=== PATIENT | female | born 1990 | race Caucasian/White ===

== ENCOUNTER → 2018-04-01 09:35 | Outpatient (CLI) | payer OTHER, SELFPAY ==
[2018-04-07 12:18] LABS: HPV APTIMA, High Risk Negative (Negative)
[2018-04-07 12:55] LABS: HPV Reflexed? NOT INDICATED
== END ==
PROVIDERS: Visit Provider Obstetrics & Gynecology
DX: Z12.4 Encounter for screening for malignant neoplasm of cervix (principal)
CPT/HCPCS: 87624; 88175; G0145

== ENCOUNTER → 2018-04-27 11:45 | Outpatient (CLI) | payer OTHER, SELFPAY ==
[2018-04-28 17:18] LABS: Chlamydia Trachomatis by PCR Negative (Negative); Neisserai gonorrhoeae by PCR Negative (Negative); Probe Check PASS; Sample Adequacy Control PASS; Specimen Processing Control PASS
== END ==
PROVIDERS: Visit Provider Obstetrics & Gynecology
DX: Z11.3 Encounter for screening for infections with a predominantly sexual mode of transmission (principal)
CPT/HCPCS: 87491; 87591

== ENCOUNTER → 2018-05-05 16:05 | Outpatient (CLI) | payer OTHER, SELFPAY ==
[2018-05-05 17:21] LABS: Absolute Lymphocyte Count 2.55 X10^3/ul (0.83-4.51); Absolute Neutrophil Count 5.9 X10^3/uL (2.0-7.7); Basophil# 0.01 X10^3/uL; Basophil% 0.1 % (0-1); Eosinophil# 0.25 X10^3/uL; Eosinophils% 2.6 % (0-5); Hematocrit 40.3 % (37-47); Hemoglobin 13.9 g/dl (12.0-15.0); Lymphocyte # 2.55 X10^3/ul (4.0); Lymphocyte % 26.5 % (19-41); Mean Corp Hgb Conc 34.5 g/gl (32-36); Mean Corpuscular Hgb 30.8 pg (27.0-32.0); Mean Corpuscular Volume 89.2 fL (81-99); Mean Platelet Vol. 11.3 fl (6.2-12.0); Monocyte# 0.87 X10^3/uL; Monocyte% 9.1 % (0-10); Neutrophil # 5.91 X10^3/uL (2.7-7.7); Neutrophil % 61.5 % (47-70); Platelet Count 300 K/mm3 (150-450); RBC Distribution Width CV 12.6 % (11.6-14.6); Red Blood Count 4.52 M/mm3 (4.2-5.4); White Blood Count 9.6 K/mm3 (4.4-11.0)
[2018-05-05 17:23] LABS: Color, Urine Yellow (Yellow); Glucose, Dipstick Normal (Normal); Ketone-Dipstick Negative (Negative); Leukocyte Esterase-Dipstick Negative /ul (Negative); Nitrite-Dipstick Negative (Negative); Occult Blood-Urine Negative /ul (Negative); POSITIVE COUNT NO; POSITIVE DIFFERENTIAL NO; POSITIVE MORPHOLOGY NO; Protein-Dipstick Negative (Negative); Specific Gravity, Urine 1.015 (1.002-1.030); Urine Bilirubin Dipstick Negative (Negative); Urine Clarity Sl. Cloudy (Clear); Urine Urobilinogen Normal (Normal)
[2018-05-05 17:31] LABS: Amphetamine Urine VISTA NEGATIVE (<1000 ng/mL); Barbiturate Urine VISTA NEGATIVE (< 200 ng/mL); Benzodiazepine Urine VISTA NEGATIVE (< 200 ng/mL); COTININE Drug Screen Negative (<200 ng/mL); Cocaine Urine VISTA NEGATIVE (< 300 ng/mL); Ecstacy Urine VISTA NEGATIVE (< 500 ng/mL); Methadone Urine VISTA NEGATIVE (< 300 ng/mL); PCP Urine VISTA NEGATIVE (< 25 ng/mL); THC Urine VISTA NEGATIVE (< 50 ng/mL); Vista UDS pH Range 6
[2018-05-05 18:20] LABS: HIV - WCH Non-Reactive (Nonreactive); Rubella IgG 331.8 IU/mL
[2018-05-07 01:30] LABS: Prenatal RPR NONREACTIVE (NONREACTIVE)
[2018-05-07 14:06] LABS: HEPATITIS B SURFACE AG Negative (Negative); Hep C Antibodies <0.1 s/co ratio (0.0-0.9)
== END ==
PROVIDERS: Visit Provider Obstetrics & Gynecology
DX: Z34.81 Encounter for supervision of other normal pregnancy, first trimester (principal)
CPT/HCPCS: 36415; 80307; 81002; 84443; 85025; 86703; 86762; 86803; 87340

== ENCOUNTER → 2018-11-16 16:06 | Outpatient (CLI) | payer OTHER, MEDICAID, SELFPAY ==
[2018-11-16 17:24] LABS: Hemoglobin 12.3 g/dL (12.0-15.0); Mean Corp Hgb Conc 33.2 g/dL (32-36); Mean Corpuscular Hgb 30.3 pg (27.0-32.0); Mean Corpuscular Volume 91.1 fL (81-99); Mean Platelet Vol. 12.4 fl (6.2-12.0); Platelet Count 248 K/mm3 (150-450); Red Blood Count 4.06 M/mm3 (4.2-5.4); White Blood Count 8.8 K/mm3 (4.4-11.0)
[2018-11-16 17:30] LABS: International Normalized Ratio 0.9; Prothrombin Time (Protime)PT. 12.2 SECONDS (11.7-14.9)
[2018-11-16 17:31] LABS: Partial Thromboplast Time 28.3 Seconds (24.1-36.2)
[2018-11-16 18:14] LABS: AST(SGOT) 18 U/L (15-37); Alanine Aminotransfer ALT/SGPT 17 U/L (13-56); Creatinine, Serum 0.64 mg/dL (0.55-1.02); EST Glomerular Filtration Rate 119 mL/min (>60); Est Glom Filt Rate - Afr Amer 144 mL/min (>60); Uric Acid 4.5 mg/dL (2.6-6.0)
== END ==
PROVIDERS: Visit Provider Obstetrics & Gynecology
DX: Z36.85 Encounter for antenatal screening for Streptococcus B (principal); O13.9 Gestational [pregnancy-induced] hypertension without significant proteinuria, unspecified trimester; Z3A.00 Weeks of gestation of pregnancy not specified
CPT/HCPCS: 36415; 82565; 84450; 84460; 84550; 85027; 85610; 85730; 87081

== ENCOUNTER → 2018-11-17 23:33 | Outpatient (CLI) | payer OTHER, MEDICAID, SELFPAY ==
[2018-11-18 00:42] LABS: 24 Hour Urine Protein 420.9 mg/24HR (<150 MG/24HR); 24HR. UA Prot. Total Volume 2300 mL; Urine Protein (24 Hour) 18.3 mg/dL (<11.9)
== END ==
PROVIDERS: Visit Provider Obstetrics & Gynecology
DX: O13.9 Gestational [pregnancy-induced] hypertension without significant proteinuria, unspecified trimester (principal); Z3A.00 Weeks of gestation of pregnancy not specified
CPT/HCPCS: 84156

== ENCOUNTER 2018-11-23 17:45 | Inpatient (IN) | payer OTHER, MEDICAID, SELFPAY ==
--- NOTE | 2018-11-23 18:04 | PCM.HP.BLA ---
History and Physical ACOG ANTEPARTUM RECORD - HISTORY AND PHYSICAL (11/23/2018) Name: WAYLON LOYA OB Physician: SANTOS Dresden's Physician: UNDECIDED ...................................................................... : 1990 Age: 28 Address: [address] [place] [address] Phone: H) [phone] Insurance Carrier: [facility] ([place], [place]) [id number] Emergency Contact: MYLES DAVIDSON [phone] ...................................................................... Final NÁGEL: 12/09/18 By Ultrasound: 8 weeks 6 days MD PATIENT TERRI Marroquin is a 28yo at 37w5d gestation by L=8w6d US here for medically indicated IOL; is remarkable for elevated blood pressures, and 24 hour protein last week of 421; today in office she c/o sparkles in her visual field, and HENSLEY; she is GBS negative PARITY: (G-Total Pregnancies P-Fullterm,Premature,Induced AB,Spont AB, Ectopics, Multiple,Living) ÁNGEL CONFIRMATION: By LMP: 03/04/18 Initial Exam: 12/09/18 By First Ultrasound Exam: 12/07/18 Final ÁNGEL: 12/09/18 BLOOD TYPE: AFP: 1 HR PG: GBS: Original Ordering Provider: Verónica Prado Comments: VAGINAL/RECTAL SUMMER Culture Group B Beta Streptococcus is not isolated. Rublla titer (>10 immune)-- Hepatatis B rita AG-- CULTURES:-- OB PROBLEM LIST: Decline AFP and CF tests. Enc office Childbirth and Classes. ALLERGIES: No Known Allergies MEDICATIONS: Vitamins with Minerals 28 mg iron-800 mcg tablet 1 qd Probiotic 3 billion cell capsule One pill by mouth once a day SOCIAL HISTORY: Smoking - Never Alcohol Use - socially not while Diet - moderate, balanced diet, caffeine < 2 drinks per day and Water intake- loves water- a gallon + daily Lifestyle - moderate stress lifestyle, single and Engaged Exercise - Was gym 5-6 d /w. Now 1-2. Wt lifting 35#. Enc to walk 20m day. 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 Illicit Drug Use - None Sexual Activity - [employer] Place of - [place] Hours Worked - 40 hours per week Spouse-Sig Other Name - Chinyere Tran Spouse-Sig Other Occupation - [employer] Spouse-Sig Other Phone No - [phone] PRIOR DELIVERY HISTORY DEL DATE GEST LAB WT LB WT OZ TYPE ANES LABOR TX ANTEPARTUM FLOW CHART VISIT GE RTC FU F F NC U U DATE WK MD WKS HT PN HR M SS BP ED WT NC GL D EF ST __ ____ ___ __ __ ___ __ __ __ ___ __ __ __ ___ __ 15 Nov JMW 6 37 V + + 128/84 sl 214 1+ - 2 40 -2 08 Nov ELB 1 35 V + + 140/100 2+ 219 tr - cl TH -1 Nov JMW 1 35 + + 118/76 sl 219 tr - 24 Oct 34 JMW 1 35 + + 122/80 1+ 215 tr - Oct JMW 2 32 + + 112/74 1+ 211 - - Oct 08 JMW 2 31 + + 120/78 sl 202 tr - 06 Oct 05 JMW 3 27 + + 123/77 1+ 198 - - Aug 31 JMW 4 24 + + 110/68 sl 189 tr - Jul 28 JMW 4 20 + + 110/74 0 180 - - June 23 JMW 4 15 + O 118/66 0 175 tr - May 21 JMW 4 + O 118/70 0 172 - - Apr 16 JMW 4 U+ 108/72 169 - - ANTEPARTUM NOTE(S): Nov 23 2018: On BR; seeing sparkles; ABBY=5cm-->induce Nov 16 2018: GBS today Nov 09 2019: Ctxs-mild, Feeling Well Nov 02 2018: Doing Well, Good FM Oct 19 2018: Cold/allergy sx, going to try Claritin Oct 05 2018: see progress note Sep 14 2018: Doing Well, 1hrGTT/CBC today Aug 17 2018: Doing Well, Glucola given Jul 21 2018: US OK Jun 22 2018: Declines AFP and Doing Well Jun 01 2018: Doing Well May 05 2018: see note, US OK COMPREHENSIVE ANTEPARTUM NOTE(S): Nov 23 2018: Set up for Induction and sent to L and D this evening. Questions answered and consents signed. H and P faxed to Gian and Mary Jane. SULEMA Nov 19 2018: GBS negative. EB Nov 19 2018: H taken to OB. tkg Nov 18 2018: MILD preeclampsia, bedrest 37 wks. unfavorable cervix. EB Nov 16 2018: Repeat B/P with large curr 130/90. GBS today, desires LARC, Nexplanon. LMT Nov 16 2018: PIH labs today. Bedrest and off work for one day while collecting labs, and 24 hr urine EB Oct 05 2018: Waylon presents for her PNV. She is reporting +FM and slight intermittent swelling in her lower extremities. Pt is c/o a pea sized lump in her Lt axillary area for the past several days. JT Sep 17 2018: Hgb 12.0 g/dl. Glucola 102. EB Aug 30 2018: Waylon calling @ 25 wks w/concern of a reddened, non-itchy rash inner lower legs onset 4-5 days ago. Started with a patchy effect, by Sat night more diffuse. Rash feels burny. No Sx rash anywhere else on her body. She has cats, but they are inside only. She has not been outside in the [place] b/c it has been too hot. No contact with anything else she is aware of. Not using anything topically on it. Next appt 09/14. Offered topical Hydrocortisone cream to see if this helps. If not helping and becoming worse, see PCP. May 06 2018: O positive RI. TSH wnl. Hgb 13. 9 g/dl. EB May 05 2018: PT seen in ER last night for bug bite on left hand, with red streaks running up back of hand. PT was given Cephalexin. dg May 05 2018: WaylonKAREN and her mother are here for NOB nurse visit with ÁNGEL Dec 09, 2018 planning a vag del at [facility], unsure of epidural or post disch ped care and to breastfeed. 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 Светлана works for [employer]. Waylon and Davy live together in a house they've bought. They are pleased w the pg. She has NKA to drugs, food. latex or the environment. Her diet is balanced w no caffeine and over one gal of water daily. I love water. She drinks alcohol socially but not in pg and is a lifetime non smoker and denies street drug use. She used to go to the gym 5-6 x wk but now does 1-2 x. Enc to walk 20 min q day. Genetic Screening form completed noting a second cousin with Down's Syndrome. They decline AFP and CF tests. Warning signs in pg discussed as well as otc meds ok to take, reaching the office after hours, wearing seatbelt low on abd. importance of protein in diet and lifting restriction of 25# w understanding voiced. She lifts about 35# routinely at the gym. She will need to check w JW re when this is too much. They have 4 cats but Светлана cares for the litter boxes. US done today and routine labs drawn. Office Childbirth and Classes discussed and enc and they are interested. Enc to call w any concerns. Visit took approx one hour. Lola JAFFE. Apr 30 2018: GC and chlamydia NEG. EB Apr 27 2018: Waylon presents for her Missed Menses. She is a 27yo G 1. Pt is unmarried but sts the father will be involved. +UPT in office today. LMP 03/04/18, ÁNGEL by LMP 12/09/18. She is planning to deliver via at [facility]. She is taking an OTC vitamins. NOB packet given. No questions or concerns voiced. JT Apr 27 2018: ok Mar 30 2018: Waylon presents here today for annual pap/exam. 27 y.o. G 0 P 0 non-smoker with history of regular menses and LMP of 03-04-18 lasting her average of 5 days. Denies new brush hand problems or concerns. reports she just wanted to get established with a ELEMENTARY EDUCATION TUTOR in this area(as she used to travel to [place], but she works this direction). History of all normal pap screenings with last in 2018. Medications listed. SULEMA Mar 30 2019: ok REVIEW OF SYSTEMS: GENERAL - Denies fever, or chills SKIN - Denies rash, new skin lesions, or change in moles EYES - Denies blurred vision, or change in visual acuity EARS - Denies ear pain, or difficulty hearing NOSE - Denies nasal congestion, discharge, or bleeding MOUTH - Denies sore throat, or difficulty swallowing NECK - Denies pain or swelling RESPIRATORY - Denies shortness of breath, cough, wheezing CARDIOVASCULAR - Denies palpitations, chest pain, orthopnea, PND, peripheral edema, syncope or claudication GASTROINTESTINAL - Denies nausea, vomiting, diarrhea, constipation, Denies abdominal pain, melena and or bright red blood GENITOURINARY - Denies dysuria, frequency of urination, urgency, or hesitancy MUSCULOSKELETAL - Denies joint or muscle pain, or back pain NEUROLOGICAL - Denies localized numbness, weakness, or tingling PSYCHIATRIC - Denies depression, anxiety, substance abuse or suicide attempts ENDOCRINE - Denies heat or cold intolerance, weight loss or gain, increasing thirst HEMATO-IMMUNOLOGIC - Denies easy bruising, bleeding, oral ulcerations or recurrent infections GENETICS SCREENING: Age 35+ years: No Thalassemia: No Neural Tube Defect: No Down Syndrome: Yes Cousin CAROL-SACHS: No Sickle Cell Disease: No Hemophilia: No Musc. Dystrophy: No Cystic Fibrosis: No-declines screening [place] Chorea: No Mental Retardation: No Fragile X: No Other genetic: No Other defects: No SABs/still births: No Drugs since LMP: Yes INFECTION HISTORY: High risk AIDS: No High risk Hepatitis: No Exposed to TB: No Exposed to Herpes: No Rash/viral illness since LMP: No History of STD: No MENSTRUAL HISTORY: *Menses Amount/Duration: 5 daysMenses Regularity: RegularFrequency: monthlyMenarche (Age Onset): 15* PAST SUMMARY: PARITY: 1. Total Pregnancies............ 1 2. Full Term Pregnancies........ 0 3. Premature.................... 0 4. Abortions - Induced.......... 0 5. Abortions - Spontaneous...... 0 6. Ectopics..................... 0 7. Multiple Births.............. 0 8. Living Children.............. 0 Labs for : WAYLON LOYA since 03/14/2018 ORDER DATEIN DESCRIPTION VALUE UNITS RANGE A+ COMMENT PROTEIN, URINE 24HR 11/17/18 NOTE Original Ordering Provider: Verónica Prado UR COLLECT TIME 24.0 HOURS 24.0 UR TOTAL VOLUME 2300 mL URINE PROTEIN 18.3 mg/dL <11.9 H 24HR UR PROTEIN 420.9 mg/24HR <150 MG/24HR H Reviewed by VERÓNICA PARTIAL THROMBOPLAST TIME 11/16/18 NOTE Original Ordering Provider: Verónica Prado PTT 28.3 Seconds 24.1-36.2 Reviewed by VERÓNICA PROTHROMBIN TIME W/INR 11/16/18 NOTE Original Ordering Provider: Verónica Prado PROTIME 12.2 SECONDS 11.7-14.9 INR 0.9 Reviewed by VERÓNICA ALANINE AMINOTRANSFERAS (SGPT) 11/16/18 NOTE Original Ordering Provider: Verónica Prado ALT 17 U/L 13-56 Reviewed by VERÓNICA AST(SGOT) 11/16/18 NOTE Original Ordering Provider: Verónica Prado AST 18 U/L 15-37 Reviewed by VERÓNICA URIC ACID 11/16/18 NOTE Original Ordering Provider: Verónica Prado URIC 4.5 mg/dL 2.6-6.0 The drugs N-Acetylcysteine and Metamizole may falsely depress this assay. Reviewed by VERÓNICA SERUM CREATININE AND GFR 11/16/18 NOTE Original Ordering Provider: Verónica Prado CREAT,SERUM 0.64 mg/dL 0.55-1.02 The validity of the calculated GFR AND GFRAA in patients over 70 years has not been determined. Clinical correlation is essential. EST GFR 119 mL/min >60 Non- GFR Calc EST GFR - AA 144 mL/min >60 GFR Calc Reviewed by VERÓNICA CBC-COMPLETE BLOOD CNT NO DIFF 11/16/18 NOTE Original Ordering Provider: Verónica Prado WBC 8.8 K/mm3 4.4-11.0 RBC 4.06 M/mm3 4.2-5.4 L HGB 12.3 g/dL 12.0-15.0 HCT 37.0 % 37-47 MCV 91.1 fL 81-99 MCH 30.3 pg 27.0-32.0 MCHC 33.2 g/dL 32-36 RDW CV 13.0 % 11.6-14.6 RDW SD 42.0 fl 35.1-43.9 PLT 248 K/mm3 150-450 MPV 12.4 fl 6.2-12.0 H Reviewed by VERÓNICA CULTURE, GROUP B STREPTOCOCCUS 11/16/18 NOTE Original Ordering Provider: Verónica Prado Comments: VAGINAL/RECTAL SUMMER Culture Group B Beta Streptococcus is not isolated. Reviewed by VERÓNICA Reviewed by VERÓNICA GLUCOSE CHALLENGE 50GM 1 HOUR 09/14/18 NOTE Original Ordering Provider: JACK PLATA GLUCOSE CHALLENGE 50GM 1 HOUR GLUCOSE CHALLENGE 50 GMS 1 HOUR GLUCOSE 1HR 102 mg/dl 70 - 140 Reviewed by VERÓNICA CBC + DIFF 09/14/18 NOTE Original Ordering Provider: TYLER RUDYMARCO A CBC + DIFF CBC-COMPLETE BLOOD COUNT WBC 9.2 x 10EE3/UL 4.5 - 10.8 RBC 3.89 x 10EE6/UL 4.10 - 5.30 L HEMOGLOBIN 12.0 g/dl 12.0 - 16.0 HEMATOCRIT 35.3 % 34.0 - 46.0 MCV 91 fl 80 - 99 MCH 31 pg 27 - 33 MCHC 34 X10 3 32 - 36 RDW/CV 12.5 % 12.0 - 15.6 PLATELET 297 x10EE3/UL 150 - 450 MPV 9.5 fl 6.6 - 10.5 AUTOMATED DIFFERENTIAL NEUT % 71.0 % 46.0 - 76.0 LYMPH % 18.5 % 20.0 - 45.0 L MONOS % 8.1 % 0.0 - 10.0 EO % 1.8 % 0.0 - 7.0 BASO % 0.6 % 0.0 - 2.0 LYMPH # 1.70 x10EE3/UL 0.80 - 2.80 NEUT # 6.50 x10EE3/UL 1.50 - 7.10 MONO # 0.70 x10EE3/UL 0.20 - 1.00 EO # 0.20 x10EE3/UL 0.00 - 0.50 BASO # 0.10 x10EE3/UL 0.00 - 0.10 MANUAL DIFF N/A MORPHOLOGY N/A Reviewed by VERÓNICA HEPATITIS C ANTIBODIES 05/05/18 NOTE Original Ordering Provider: Jack Plata HEP C AB <0.1 s/co ratio 0.0-0.9 Negative: < 0.8 Indeterminate: 0.8 - 0.9 Positive: > 0.9 The CDC recommends that a positive HCV antibody result be followed up with a HCV Nucleic Acid Amplification test (117842). Reviewed by VERÓNICA HEPATITIS B SURFACE AG 05/05/18 NOTE Original Ordering Provider: Jack Plata HB SURF AG Negative Negative Performed at: [address] [id number] Security Rover: Esvin Jackson PhD, Phone: [phone] Reviewed by VERNÓICA RPR 05/05/18 NOTE Original Ordering Provider: Jack Plata RPR NONREACTIVE NONREACTIVE Reviewed by VERÓNICA T AND S-NO CHARGE W/PNP 05/05/18 Reason for Type AND Screen/Red Cells: Surgery? N [facility]~[address] [place], [address]~ BLOOD TYPE GEL A POSITIVE N AB SCREEN GEL NEGATIVE N Reviewed by VERÓNICA HIV - [facility] 05/05/18 NOTE Original Ordering Provider: Jack Plata HIV - [facility] Non-Reactive Nonreactive Reviewed by VERÓNICA RUBELLA IGG 05/05/18 NOTE Original Ordering Provider: Jack Rudymarco a RUBELLA IGG 331.8 IU/mL Antibody results Interpretation of Immune Status < 5 IU/ml Presumed Non-immune 5 - < 10 IU/ml Equivocal > or = 10 IU/ml Presumed Immune Reviewed by VERÓNICA THYROID STIM HORMONE (TSH) 05/05/18 NOTE Original Ordering Provider: Jack Plata TSH 1.70 uIU/mL 0.358-3.74 Reviewed by VERÓNICA NICOTINE URINE DRUG SCREEN 05/05/18 NOTE Original Ordering Provider: Jack Plata TO BE CONFIRMED CONFIRMATORY TESTING FOR ALL POSITIVE URINE DRUG SCREEN RESULTS WILL ONLY BE SENT OUT UPON PHYSICIAN ORDER. The results of Urine Drug Screen methods provide only preliminary analytical test results. A more specific alternate chemical method must be used in order to obtain a confirmed analytical result. Gas chromatography/mass spectrometery (GC/MS) is the preferred confirmatory method. Clinical consideration and professional judgement should be applied to any drug of abuse test result, particularly when preliminary positive results are used. COT DRG SCREEN Negative <200 ng/mL Cotinine is the first-stage metabolite of Nicotine. Reviewed by VERÓNICA URINE DRUG SCREEN (VISTA) 05/05/18 NOTE Original Ordering Provider: Jack Plata TO BE CONFIRMED CONFIRMATORY TESTING FOR ALL POSITIVE URINE DRUG SCREEN RESULTS WILL ONLY BE SENT OUT UPON PHYSICIAN ORDER. VISTA Urine Drug Screen methods provide only preliminary analytical test results. A more specific alternate chemical method must be used in order to obtain a confirmed analytical result. Gas chromatography/mass spectrometery (GC/MS) is the preferred confirmatory method. Clinical consideration and professional judgement should be applied to any drug of abuse test result, particularly when preliminary positive results are used. URINE TCA TESTING MUST BE ORDERED SEPARATELY. USE TEST MNEMONIC: [place] [facility] UDS PH 6 AMPHETAMINES NEGATIVE <1000 ng/mL BARBITIURATES NEGATIVE < 200 ng/mL BENZODIAZIPINE NEGATIVE < 200 ng/mL COCAINE NEGATIVE < 300 ng/mL ECSTACY NEGATIVE < 500 ng/mL METHADONE NEGATIVE < 300 ng/mL OPIATES NEGATIVE < 300 ng/mL PCP NEGATIVE < 25 ng/mL THC NEGATIVE < 50 ng/mL Reviewed by VERÓNICA URINALYSIS, ROUTINE (DIPSTICK) 05/05/18 NOTE Original Ordering Provider: Jack Micheal COLOR Yellow Yellow CLARITY Sl. Cloudy Clear GLUCOSE, UR Normal mg/dl Normal BILIRUBIN URINE Negative mg/dL Negative KETONE UR Negative mg/dl Negative SP.GR. DIPSTX 1.015 1.002-1.030 PH UR 8.0 5.0 - 8.0 PROT DIPSTX Negative mg/dl Negative UROBILI Normal mg/dl Normal NITRITE UR Negative Negative OCCULT BLOOD-UR Negative /ul Negative LEUK ESTERASE Negative /ul Negative Reviewed by VERÓNICA CBC W/DIFF, AUTOMATED 05/05/18 NOTE Original Ordering Provider: Jack Plata WBC 9.6 K/mm3 4.4-11.0 RBC 4.52 M/mm3 4.2-5.4 HGB 13.9 g/dl 12.0-15.0 HCT 40.3 % 37-47 MCV 89.2 fL 81-99 MCH 30.8 pg 27.0-32.0 MCHC 34.5 g/gl 32-36 RDW CV 12.6 % 11.6-14.6 RDW SD 40.0 fl 35.1-43.9 PLT 300 K/mm3 150-450 MPV 11.3 fl 6.2-12.0 NEUT% 61.5 % 47-70 LY% 26.5 % 19-41 MONO% 9.1 % 0-10 EO% 2.6 % 0-5 BASO% 0.1 % 0-1 IM GRAN % 0.200 % 0.0-0.9 IG% - Immature Granulocytes (promyelocytes, myelocytes and metamyelocytes) > 1% indicates that a LEFT SHIFT is Present. ABSOLUTE NEUT 5.9 X10 3/uL 2.0-7.7 ABSOLUTE LYMPH 2.55 X10 3/ul 0.83-4.[address]/TOM [facility] BY PCR 04/27/18 NOTE Original Ordering Provider: Jack Plata [facility] PCR Negative Negative NG BY PCR Negative Negative Reviewed by VERÓNICA PAP IG W/REFLEX HR HPV APTIMA 03/30/18 NOTE Original Ordering Provider: Jack Plata DIAGN . H EPITHELIAL CELL ABNORMALITY. ATYPICAL SQUAMOUS CELLS OF UNDETERMINED SIGNIFICANCE (ASC-US). ADEQ . Satisfactory for evaluation. Endocervical and/or squamous metaplastic cells (endocervical component) are present. PERFORM . Guillermina Medina, [employer] (ASCP) SIGN . Amarilis Lee MD, Pathologist PATH PROV. ICD9 . R87.610 TEST METHOD . This liquid based ThinPrep(R) pap test was screened with the use of an image guided system. COMM . . PAPSMR . The Pap smear is a screening test designed to aid in the detection of premalignant and malignant conditions of the uterine cervix. It is not a diagnostic procedure and should not be used as the sole means of detecting cervical cancer. Both false-positive and false-negative reports do occur. HPV APTIMA, HR Negative Negative This test detects fourteen high-risk HPV types (16/18/31/33/35/39/45/ 51/52/56/58/59/66/68) without differentiation. Performed at: [address] [place] [id number] Security Rover: Amarilis Lee MD, Phone: [phone] Performed at: [address] [id number] Security Rover: Eugenia Aldridge MD, Phone: [phone] Performed at: [address] [id number] Security Rover: Eugenia Aldridge MD, Phone: [phone] HPV RFLX . See below for HPV testing results. Reviewed by JACK PROVIDER SIGNATURE ( REQUIRED) PHYSICAL EXAMINATION General Appearence: 28 yo female in no acute distress Vital Signs: AF, VSS Heart: RRR without rubs or gallops Lungs: CTA x 2 Breasts: deferred Abdomen: gravid Pelvis: Cervix: 2/40/-[address] Plata Presentation: cephalic Fetus: Size: AGA Movement: present Heart: present Impression: 28yo at 37w5d gestation by L=8w6d US Severe preeclampsia GBS negative Plan: Discussed with Dr. Plata Admit to inpatient Preeclampsia labs Continuous monitoring Pitocin, 1mu continuously overnight, then will revaluate in AM
[2018-11-23 18:06] VITALS: BMI 32.0
[2018-11-23] MEDS: Lactated Ringers 1,000 ML 50 ML IV (18:15)
[2018-11-23 19:00] LABS: Absolute Lymphocyte Count 2.27 X10^3/uL (0.83-4.51); Absolute Neutrophil Count 5.6 X10^3/uL (2.0-7.7); Basophil# 0.03 X10^3/uL; Basophil% 0.3 % (0-1); Eosinophil# 0.16 X10^3/uL; Eosinophils% 1.8 % (0-5); Hematocrit 39.3 % (37-47); Lymphocyte # 2.27 X10^3/ul (4.0); Lymphocyte % 25.2 % (19-41); Mean Corp Hgb Conc 33.1 g/dL (32-36); Mean Corpuscular Hgb 30.2 pg (27.0-32.0); Mean Corpuscular Volume 91.2 fL (81-99); Mean Platelet Vol. 12.3 fl (6.2-12.0); Monocyte# 0.94 X10^3/uL; Monocyte% 10.4 % (0-10); NRBC Flagged by Analyzer 0 % (0-5); Neutrophil # 5.55 X10^3/uL (2.7-7.7); Neutrophil % 61.5 % (47-70); Platelet Count 267 K/mm3 (150-450); RBC Distribution Width CV 13.1 % (11.6-14.6); RBC Distribution Width SD 43.5 fl (35.1-43.9); Red Blood Count 4.31 M/mm3 (4.2-5.4)
[2018-11-23 19:11] LABS: International Normalized Ratio 0.9; Prothrombin Time (Protime)PT. 12.2 SECONDS (11.7-14.9)
[2018-11-23 19:12] LABS: Partial Thromboplast Time 26.4 Seconds (24.1-36.2)
[2018-11-23 19:13] LABS: AST(SGOT) 18 U/L (15-37); Alanine Aminotransfer ALT/SGPT 16 U/L (13-56); Creatinine, Serum 0.73 mg/dL (0.55-1.02); EST Glomerular Filtration Rate 102 mL/min (>60); Est Glom Filt Rate - Afr Amer 123 mL/min (>60); Estimated Creatinine Clearance 122.05 ml/min; Uric Acid 4.4 mg/dL (2.6-6.0)
[2018-11-23] MEDS: Oxytocin 30 units/NS 500 ml 30 UNITS/500 ML IV.SOLN IV (19:44)
[2018-11-23 21:17] LABS: Protein, Urine (Random) 27.6 mg/dL (<11.9); Protein:Creat Ratio 451 mg/g CRE (0-200)
[2018-11-23] MEDS: Mag Hydrox/Al Hydrox/Simeth 30 ML UDC PO (23:21)
[2018-11-24] MEDS: Lactated Ringers 500 ML 999 ML IV ×2 (00:05→11:47)
[2018-11-24] MEDS: Mag Hydrox/Al Hydrox/Simeth 30 ML UDC PO (05:11)
--- NOTE | 2018-11-24 08:46 | PN.OBGYN_ITS ---
Subjective: Patient with moderate contractions this morning after being on Pitocin overnight. Rupture of membranes performed with cervix 2 cm 50% effaced -2 st ation. Scant fluid noted. Internal monitors placed. Continue to expect spontaneous vaginal delivery. PIH symptoms stable. - Physical Exam Weight: 217 lb Body Mass Index (BMI) 32.0 Intake and Output for Last 24 Hours 11/22/18 11/23/18 11/24/18 23:59 23:59 23:59 Intake Total 141.67 / 141.67 1050.47 / 1050.47 Balance 141.67 / 141.67 1050.47 / 1050.47 Laboratory Tests Past 24 Hrs 11/23/18 11/23/18 11/23/18 18:15 18:15 18:15 WBC 9.0 RBC 4.31 Hgb 13.0 Hct 39.3 MCV 91.2 MCH 30.2 MCHC 33.1 RDW Std Deviation 43.5 RDW Coeff of Alvina 13.1 Plt Count 267 MPV 12.3 H Immature Gran % (Auto) 0.800 Neut % (Auto) 61.5 Lymph % (Auto) 25.2 [place] % (Auto) 10.4 H Eos % (Auto) 1.8 Baso % (Auto) 0.3 Absolute Neuts (auto) 5.6 Absolute Lymphs (auto) 2.27 Nucleated RBC % 0 PT 12.2 INR 0.9 APTT 26.4 Creatinine Estim Creat Clear Calc Est GFR (MDRD) Af Amer Est GFR (MDRD) Non-Af Uric Acid AST ALT U Random Total Protein Urine Creatinine Protein/Creatinin Ratio Blood Type A POSITIVE Antibody Screen NEGATIVE 11/23/18 11/23/18 18:15 20:30 WBC RBC Hgb Hct MCV MCH MCHC RDW Std Deviation RDW Coeff of Alvina Plt Count MPV Immature Gran % (Auto) Neut % (Auto) Lymph % (Auto) [place] % (Auto) Eos % (Auto) Baso % (Auto) Absolute Neuts (auto) Absolute Lymphs (auto) Nucleated RBC % PT INR APTT Creatinine 0.73 Estim Creat Clear Calc 122.05 Est GFR (MDRD) Af Amer 123 Est GFR (MDRD) Non-Af 102 Uric Acid 4.4 AST 18 ALT 16 U Random Total Protein 27.6 H Urine Creatinine 61.20 Protein/Creatinin Ratio 451 H Blood Type Antibody Screen Medical Necessity - Tobacco Use Smoking Status: Never smoker
[2018-11-24] MEDS: Ondansetron 4 MG/2 ML Vial IV (11:01)
[2018-11-24] MEDS: fentaNYL-bupivacaine (epidural) 100 ML BAG EPIDURAL (12:29)
[2018-11-24] MEDS: Lactated Ringers 1,000 ML 194 ML IV (12:34)
[2018-11-24] MEDS: Oxytocin 30 units/NS 500 ml 30 UNITS/500 ML IV.SOLN 334 UNITS IV (17:04)
--- NOTE | 2018-11-24 19:01 | OP.PCM_ITS ---
Vaginal Delivery Maternal Presentation: Medically Indicated Induction Method of Induction: Pitocin, Amniotomy Medical Reason for Induction: Preeclampsia, eclampsia, - - Oligohydramnios Amniotic Membrane Rupture Type: Artificial Amniotic Fluid Description: Clear Final ÁNGEL: 12/09/18 Final ÁNGEL Source: US <20 weeks Gestational age: 37 Weeks and 6 Days doctor who attended delivery (if requested by OB): Michelle Brar - tachycardia Date of Procedure: 11/24/18 Pre-Operative Diagnosis: IUP, Oligohydramnios, PIH Post-Operative Diagnosis: IUP, Oligohydramnios, PIH Surgery/ Procedure Performed: Vacuum Assisted Vaginal Delivery Type of Anesthesia: Epidural Description of Procedure: Spontaneous vaginal delivery of a viable female infant with Apgars of 8/9 from an occiput anterior presentation with clear amniotic fluid and normal three- vessel placenta. Second-degree midline episiotomy and no lacerations. Repaired with 3-0 repeat suture under epidural anesthesia. Kiwi vacuum used x4 gentle pulls from low outlet with no pop to expedite delivery of the head due to extremely deep decelerations with contractions after approximately 1-1/2 hours of pushing. Cord around the neck x1 tight. Sponges okay. Delivery physician: Kevin Burton MD. Presentation: Vertex Placental Delivery Description: Spontaneous Placenta Disposition: [facility] Cord Vessel Description: 3 Vessels Cord Gases drawn per routine: ABG Cord Entanglement: Around neck x 1, tight Estimated Blood Loss: 250 cc Infant A gender: Female (1 minute): 8 (5 minute): 9 Episiotomy Description: Midline, 2nd degree Laceration: None Medications given after delivery: IV Pitocin Complications: None
--- NOTE | 2018-11-24 19:06 | DCINST_ITS ---
Discharge Diet: No Restrictions Discharge Activity: May Shower, May Take a Tub Bath May resume sexual activity in: 4-6 weeks Additional Activity Instructions:: Nothing in the vagina for 4-6 weeks. You may return to work/school in 6 weeks. Call your doctor if you observe: Fever of 101 or Higher, Inability to urinate, Inability to have a bowel movement, Using more than one pad per hour Additional Instructions: If you experience any of the following, contact your healthcare provider. * Bleeding that soaks a pad every hour for 2 hours * Unrelieved incision or abdominal pain * Swelling, redness, discharge or bleeding from your incision or episiotomy site * Your incision begins to separate * Problems urinating (including inability to urinate or burning while urinating). * Visual changes * Severe headache * Flu-like symptoms * Pain or redness in one of both of your breasts * Pain, warmth, tenderness or swelling in your legs, especially the calf area * Frequent nausea and vomiting * Symptoms of depression or anxiety If you experience any of the following, call 911 or go to the nearest Emergency Room. * Chest pain * Problems breathing * Seizure activity * Partial or complete paralysis of a body part, slurred speech, weakness or drooping of the face, or a sudden inability to walk or hold your balance Allergies/Adverse Reactions: Allergies No Known Allergies Allergy (Verified 11/23/18 18:04) Medications to take at Discharge Vit No.130/Iron/Folic [ Tablet] 1 ea PO 11/23/18 Please Follow Up With: Kevin Burton MD - [phone] When: Call to make an appointment with your doctor in 6 weeks. Primary Care Physician: Care Physician,No Primary [Primary Care Provider] - Test Results: Test results from this visit will be discussed in further detail at your follow- up appointment, if applicable.
--- NOTE | 2018-11-24 19:06 | PCM.DCVAG ---
Discharge Diet: No Restrictions Discharge Activity: May Shower, May Take a Tub Bath May resume sexual activity in: 4-6 weeks Additional Activity Instructions:: Nothing in the vagina for 4-6 weeks. You may return to work/school in 6 weeks. Call your doctor if you observe: Fever of 101 or Higher, Inability to urinate, Inability to have a bowel movement, Using more than one pad per hour Additional Instructions: If you experience any of the following, contact your healthcare provider. Bleeding that soaks a pad every hour for 2 hours Unrelieved incision or abdominal pain Swelling, redness, discharge or bleeding from your incision or episiotomy site Your incision begins to separate Problems urinating (including inability to urinate or burning while urinating). Visual changes Severe headache Flu-like symptoms Pain or redness in one of both of your breasts Pain, warmth, tenderness or swelling in your legs, especially the calf area Frequent nausea and vomiting Symptoms of depression or anxiety If you experience any of the following, call 911 or go to the nearest Emergency Room. Chest pain Problems breathing Seizure activity Partial or complete paralysis of a body part, slurred speech, weakness or drooping of the face, or a sudden inability to walk or hold your balance Allergies/Adverse Reactions: Allergies No Known Allergies Allergy (Verified 11/23/18 18:04) Medications to take at Discharge Vit No.130/Iron/Folic [ Tablet] 1 ea PO 11/23/18 Please Follow Up With: Kevin Burton MD - [phone] When: Call to make an appointment with your doctor in 6 weeks. Primary Care Physician: Care Physician,No Primary [Primary Care Provider] - Test Results: Test results from this visit will be discussed in further detail at your follow-up appointment, if applicable.
[2018-11-24] MEDS: Ibuprofen 600 MG Tablet PO (19:09)
[2018-11-24 20:00] VITALS: BP 132/66; PULSE 99; RESP 16; TEMP 37.6
[2018-11-25] VITALS: BP 133/76; PULSE 77; RESP 16; TEMP 36.4
[2018-11-25] MEDS: Acetaminophen 500 MG Tablet 1000 MG PO (03:42)
[2018-11-25 03:56] VITALS: BP 129/84; PULSE 89; RESP 16; TEMP 36.6
[2018-11-25 08:10] VITALS: BP 117/79; PULSE 78; RESP 16; TEMP 36.2; O2SAT 97
[2018-11-25] MEDS: Ibuprofen 600 MG Tablet PO ×2 (10:49→21:05)
--- NOTE | 2018-11-25 12:19 | PCM.PN.OB ---
Subjective: This is a late entry for 11/25/2018 0800 Pain well controlled, tolerating diet, passing gas; infant with shallow latch and suspected tongue tie, has seen and patient is supplementing with EBM and formula by cup; planning to switch to bottle Objective: AVSS Breasts soft, nipples atraumatic Fundus firm, midline, u/2, lochia scant Perineal repair dry, intact, well approximated; mildly edematous, no erythema - Physical Exam General: Alert, Oriented x3, Cooperative, No apparent distress HEENT: PERRLA, EOMI Oral: Moist Mucosa Neck: Supple Lungs: Clear to auscultation, Normal air movement Cardiovascular: Regular rate, Regular Rhythm Abdomen: Bowel Sounds Present, Soft, Non Tender, Non-Distended, Passing Flatus Extremities: No edema Musculoskeletal: No Tenderness to Palpation of Joints or Extremities Neurological: Cranial nerves II-XII grossly intact, Deep Tendon Reflexes 2+/4 and Symmetrical, Neuro grossly intact Psych/Mental Status: Normal Affect, Appropriate, Alert and oriented to time, place, person, mood and affect Vital Signs Temp Pulse Resp BP Pulse Ox 97.2 F L 78 16 117/79 97 11/25/18 08:10 11/25/18 08:10 11/25/18 08:10 11/25/18 08:10 11/25/18 08:10 Oxygen Delivery Method Room Air Weight: 217 lb Body Mass Index (BMI) 32.0 Intake and Output for Last 24 Hours 11/23/18 11/24/18 11/25/18 23:59 23:59 23:59 Intake Total 141.67 / 141.67 3160.64 / 3160.64 Output Total 400 / 400 300 / 300 Balance 141.67 / 141.67 2760.64 / 2760.64 -300 / -300 Medical Necessity - Tobacco Use Smoking Status: Never smoker Assessment/Plan Assessment: 28yo G1 now P1 delivered at 38w4d d/t severe preeclampsia PP Day #1 Normal involution, normal PP course Plan: Watch pressures Otheriwise continue routine care
[2018-11-25 12:30] VITALS: BP 119/80; PULSE 71; RESP 15; TEMP 36.4; O2SAT 96
[2018-11-25 16:45] VITALS: BP 126/78; PULSE 75; RESP 16; TEMP 36.5; O2SAT 98
[2018-11-25 20:00] VITALS: BP 121/78; PULSE 77; RESP 18; TEMP 37.1; O2SAT 98
[2018-11-26 01:13] VITALS: BP 118/70; PULSE 79; RESP 18; TEMP 36.2; O2SAT 98
[2018-11-26] MEDS: Ibuprofen 600 MG Tablet PO ×2 (05:48→13:10)
[2018-11-26 08:53] VITALS: BP 116/75; PULSE 63; RESP 18; TEMP 36.6; O2SAT 100
--- NOTE | 2018-11-26 10:20 | PCM.PN.OB ---
Subjective: Patient without complaints. Breast-feeding going well. Ready to go home today. - Physical Exam Vital Signs Temp Pulse Resp BP Pulse Ox 97.9 F 63 18 116/75 100 11/26/18 08:53 11/26/18 08:53 11/26/18 08:53 11/26/18 08:53 11/26/18 08:53 Oxygen Delivery Method Room Air Weight: 217 lb Body Mass Index (BMI) 32.0 Intake and Output for Last 24 Hours 11/24/18 11/25/18 11/26/18 23:59 23:59 23:59 Intake Total 3160.64 / 3160.64 480 / 480 Output Total 400 / 400 300 / 300 Balance 2760.64 / 2760.64 -300 / -300 480 / 480 Medical Necessity - Tobacco Use Smoking Status: Never smoker Assessment/Plan Doing well day #2. Will release to home with routine instructions.
--- NOTE | 2018-11-26 10:22 | DS.PCM_ITS ---
Discharge Summary Date of Admission: 11/23/18 Date of Discharge: 11/26/18 Summary: Admission Diagnosis: Severe -Induced Hypertension, 37+ Weeks Gestation Discharge Diagnosis: Severe -Induced Hypertension, 37+ Weeks Gestation Procedure: Spontaneous Vaginal Delivery HPI: Uneventful care. PE: Unremarkable. Hospital Course: The patient is a 28 year old G 1 P 0 who presented to [facility] at 87+ weeks gestation with severe PIH. Specifically blood pressures were e levated to the 1 40-50 over 100s in the office and she had marked proteinuria. PIH labs were normal. She subsequently had a spontaneous vaginal delivery without complication after Pitocin and rupture of membrane induction. Post she did well. It is now POD #2 at which time it was felt she was ready for discharge. Blood pressures have remained normal since delivery. Homegoing Instruction: She was instructed not to drive for several days, not to put anything in the vagina for 4 weeks, not to lift >25 lbs for 4 weeks and to call the office for an appointment in 6 weeks. She was instructed to call with any increasing headaches or evidence of -induced hypertension. Discharge Medications: She is to continue her vitamins at home. - Physical Exam Vital Signs Temp Pulse Resp BP Pulse Ox 97.9 F 63 18 116/75 100 11/26/18 08:53 11/26/18 08:53 11/26/18 08:53 11/26/18 08:53 11/26/18 08:53 Oxygen Delivery Method Room Air Weight: 217 lb Body Mass Index (BMI) 32.0 Intake and Output for Last 24 Hours 11/24/18 11/25/18 11/26/18 23:59 23:59 23:59 Intake Total 3160.64 / 3160.64 480 / 480 Output Total 400 / 400 300 / 300 Balance 2760.64 / 2760.64 -300 / -300 480 / 480
[2018-11-26 13:40] VITALS: BP 122/66; PULSE 77; RESP 16; TEMP 36.7; O2SAT 96
== END 2018-11-26 17:35 | disposition home or self-care (01) | DRG 806 ==
PROVIDERS: Admitting Provider Obstetrics & Gynecology; Visit Provider Obstetrics & Gynecology
DX: O76 Abnormality in fetal heart rate and rhythm complicating labor and delivery (principal); O41.03X0 Oligohydramnios, third trimester, not applicable or unspecified; Z37.0 Single live birth; O14.14 Severe pre-eclampsia complicating childbirth; O69.1XX0 Labor and delivery complicated by cord around neck, with compression, not applicable or unspecified; O70.1 Second degree perineal laceration during delivery; Z3A.37 37 weeks gestation of pregnancy
CPT/HCPCS: 59025; 59050; 82565; 82570; 84156; 84450; 84460; 84550; 85025; 85610; 85730; 86850; 86900; 86901; 99218; J7120; G0378; J2405

== ENCOUNTER → 2020-01-17 15:00 | Outpatient (CLI) | payer MEDICAID, SELFPAY ==
[2020-01-21 13:16] LABS: HPV APTIMA, High Risk Negative (Negative)
[2020-01-21 13:17] LABS: HPV Reflexed? YES, CHARGE PATIENT
== END ==
PROVIDERS: Visit Provider Obstetrics & Gynecology
DX: Z12.4 Encounter for screening for malignant neoplasm of cervix (principal)
CPT/HCPCS: 87624; 88175; G0145

== ENCOUNTER 2021-04-29 15:49 | Outpatient (CLI) | payer MEDICAID, SELFPAY ==
[2021-04-29 16:55] LABS: Absolute Lymphocyte Count 2.13 X10^3/uL (0.83-4.51); Absolute Neutrophil Count 5.1 X10^3/uL (2.0-7.7); Basophil# 0.01 X10^3/uL; Basophil% 0.1 % (0-1); Eosinophil# 0.14 X10^3/uL; Eosinophils% 1.7 % (0-5); Hemoglobin 13.4 g/dL (12.0-15.0); Lymphocyte # 2.13 X10^3/ul (0.83-4.51); Lymphocyte % 26.2 % (19-41); Mean Corp Hgb Conc 34.4 g/dL (32-36); Mean Corpuscular Hgb 29.8 pg (27.0-32.0); Mean Corpuscular Volume 86.7 fL (81-99); Mean Platelet Vol. 11.2 fl (6.2-12.0); Monocyte# 0.77 X10^3/uL; Monocyte% 9.5 % (0-10); NRBC Flagged by Analyzer 0 % (0-5); Neutrophil # 5.05 X10^3/uL (2.7-7.7); Platelet Count 318 K/mm3 (150-450); RBC Distribution Width CV 12.7 % (11.6-14.6); RBC Distribution Width SD 40.2 fl (35.1-43.9); White Blood Count 8.1 K/mm3 (4.4-11.0)
[2021-04-30 09:34] LABS: HIV - WCH Non-Reactive (Nonreactive); Hepatitis B Surface Antigen Non-Reactive (Nonreactive); Hepatitis C Antibody Non-Reactive (Nonreactive); Rubella IgG Reactive (Nonreactive); Syphilis Antibodies Non-reactive
[2021-05-01 21:07] LABS: Chlamydia By Nucleic Acid AMP Negative (Negative)
[2021-05-02 13:32] LABS: Gonococcus By Nucleic Acid AMP Negative (Negative)
== END 2021-04-29 23:59 | disposition home or self-care (01) ==
LOC: WOBLAB 15:53
PROVIDERS: Visit Provider Obstetrics & Gynecology
DX: Z34.81 Encounter for supervision of other normal pregnancy, first trimester (principal)
CPT/HCPCS: 36415; 85025; 86703; 86762; 86780; 86803; 87086; 87088; 87340; 87491; 87591

== ENCOUNTER → 2021-09-24 | Outpatient (CLI) | payer MEDICAID, SELFPAY ==
[2021-09-24 13:12] LABS: Absolute Lymphocyte Count 1.14 X10^3/uL (0.83-4.51); Absolute Neutrophil Count 5.2 X10^3/uL (2.0-7.7); Basophil# 0.01 X10^3/uL; Basophil% 0.1 % (0-1); Eosinophil# 0.17 X10^3/uL; Eosinophils% 2.4 % (0-5); Hematocrit 34.6 % (37-47); Hemoglobin 11.6 g/dL (12.0-15.0); Lymphocyte # 1.14 X10^3/ul (0.83-4.51); Lymphocyte % 16.1 % (19-41); Mean Corp Hgb Conc 33.5 g/dL (32-36); Mean Corpuscular Hgb 30.4 pg (27.0-32.0); Mean Corpuscular Volume 90.6 fL (81-99); Mean Platelet Vol. 10.8 fl (6.2-12.0); Monocyte# 0.52 X10^3/uL; Monocyte% 7.3 % (0-10); NRBC Flagged by Analyzer 0 % (0-5); Neutrophil # 5.22 X10^3/uL (2.7-7.7); Neutrophil % 73.5 % (47-70); Platelet Count 302 K/mm3 (150-450); RBC Distribution Width CV 13.4 % (11.6-14.6); RBC Distribution Width SD 44.2 fl (35.1-43.9); Red Blood Count 3.82 M/mm3 (4.2-5.4); White Blood Count 7.1 K/mm3 (4.4-11.0)
[2021-09-24 13:21] LABS: Glucose Challenge Gest 1H 50g 156 mg/dL (70-140)
== END | disposition home or self-care (01) ==
PROVIDERS: Visit Provider Obstetrics & Gynecology
DX: Z34.82 Encounter for supervision of other normal pregnancy, second trimester (principal)
CPT/HCPCS: 36415; 82950; 85025

== ENCOUNTER → 2021-10-07 | Outpatient (CLI) | payer MEDICAID, SELFPAY ==
[2021-10-07 09:34] LABS: Glucose GTT-Gestation. Fasting 90 mg/dL (<105)
[2021-10-07 10:37] LABS: Glucose GTT-Gestational 1 Hr 175 mg/dL (<190)
[2021-10-07 11:46] LABS: Glucose GTT-Gestational 2 Hr 136 mg/dL (<165)
[2021-10-07 12:49] LABS: Glucose GTT-Gestational 3 Hr 138 L (<145)
== END | disposition home or self-care (01) ==
LOC: WOBLAB 08:51
PROVIDERS: Visit Provider Obstetrics & Gynecology
DX: Z34.82 Encounter for supervision of other normal pregnancy, second trimester (principal)
CPT/HCPCS: 36415; 82951; 82952

== ENCOUNTER 2021-11-14 13:35 | Outpatient (CLI) | payer MEDICAID, SELFPAY ==
[2021-11-14] VITALS (16 sets, daily range): BP systolic 115–132; BP diastolic 62–74; PULSE 62–77; TEMP 36.4; O2SAT 96–99; BMI 35.0
[2021-11-14 14:42] LABS: Hematocrit 35.3 % (37-47); Hemoglobin 11.6 g/dL (12.0-15.0); Mean Corp Hgb Conc 32.9 g/dL (32-36); Mean Corpuscular Hgb 29.4 pg (27.0-32.0); Mean Corpuscular Volume 89.4 fL (81-99); Mean Platelet Vol. 10.9 fl (6.2-12.0); Platelet Count 291 K/mm3 (150-450); RBC Distribution Width CV 13.3 % (11.6-14.6); RBC Distribution Width SD 43.7 fl (35.1-43.9); Red Blood Count 3.95 M/mm3 (4.2-5.4); White Blood Count 8.2 K/mm3 (4.4-11.0)
[2021-11-14 14:46] LABS: Color, Urine Yellow (Yellow); Glucose, Dipstick Normal (Normal); Ketone-Dipstick Negative (Negative); Leukocyte Esterase-Dipstick 25 /ul (Negative); Nitrite-Dipstick Negative (Negative); Occult Blood-Urine Negative /ul (Negative); Protein-Dipstick Negative (Negative); Urine Bilirubin Dipstick Negative (Negative); Urine Clarity Cloudy (Clear); Urine Urobilinogen Normal (Normal)
[2021-11-14 14:56] LABS: Protein:Creat Ratio 132 mg/g CRE (0-200)
[2021-11-14 14:58] LABS: Amorphous Sediment 1+; Bacteria 1+ /hpf (None Seen); Mucous, Urine 1+ /hpf (<or=2+); Red Blood Cells-Urine 0-5 SEEN /hpf (0-5); Squamous Epithelial Cells - UA 0-5 SEEN /hpf (5-10); White Blood Cells 0-5 SEEN /hpf (0-5)
[2021-11-14] MEDS: Acetaminophen 500 MG Tablet 1000 MG PO (15:14)
[2021-11-14 16:22] LABS: ALB/GLOB Ratio 0.6 RATIO (0.9-2.4); AST(SGOT) 10 U/L (15-37); Alanine Aminotransfer ALT/SGPT 16 U/L (13-56); Albumin, Serum 2.5 g/dL (3.2-5.0); Alkaline Phosphatase 105 U/L (45-117); Anion Gap 8 (5-15); BUN 5 mg/dL (7-18); Calcium,Total 8.7 mg/dL (8.5-10.1); Chloride 109 mmol/L (98-107); EST Glomerular Filtration Rate 155 mL/min (>60); Est Glom Filt Rate - Afr Amer 187 mL/min (>60); Globulin 4.4 g/dL (2.2-4.2); Glucose 73 mg/dL (74-106); LDH 151 U/L (84-246); Potassium 3.6 mmol/L (3.5-5.1); Protein, Total 6.9 g/dL (6.4-8.2); Sodium Level 138 mmol/L (136-145)
--- NOTE | 2021-11-14 17:42 | OB.TRI.NOTE ---
HPI - General General Date of Admission: 11/14/21 HPI Narrative WAYLON ROLAND, is a 31 F who presents with headache PFSH PFSH Home Medications vits no.130-ferrous fum 27 mg iron-folic acid 800 mcg tablet 1 ea PO DAILY Check with primary doctor 11/23/18 [History Last Taken 11/13/21 21:00] aspirin 81 mg capsule 81 mg PO DAILY Check with primary doctor 11/14/21 [History Last Taken 11/13/21 21:00] escitalopram oxalate 10 mg tablet (Lexapro) 10 mg PO DAILY Check with primary doctor 11/14/21 [History Last Taken 11/13/21 21:00] famotidine 20 mg tablet (Pepcid) 40 mg PO DAILY Check with primary doctor 11/14/21 [History Last Taken 11/13/21 21:00] Allergy/AdvReac Type Severity Reaction Status Date / Time No Known Allergies Allergy Verified 11/14/21 14:21 Social History Smoking Status: Never smoker History Elective abortions Hx Para 0 Spontaneous abortions Hx # Term Pregnancies Ectopic pregnancies Hx # Pregnancies Multiple births # of living children Physical Exam Const alert, oriented x3, no apparent distress, average body habitus, no limitations and healthy appearing HEENT moist oral mucous membranes Eyes PERRL Neck full ROM Resp normal respiratory effort, no retractions and no use of accessory muscles GI GI Narrative: Soft, nontender, gravid. Negative right upper quadrant pain Extremity normal to inspection, full ROM and no clubbing, cyanosis or edema Neuro moves all extremities, no focal motor deficits, no sensory deficits noted and deep tendon reflexes 2+ bilaterally Motor Exam: clonus absent Psych mental status grossly normal, affect normal, speech normal and activity/motor behavior normal Assessment & Plan (1) : PLAN: Patient seen and examined. Patient arrived with headache, no visual changes. Relieved with Tylenol. Possible at home elevated blood pressure, here in triage all within normal limits. HELLP labs wnl. Denies chest pain, shortness of breath. Discussed and reexamined patient, overall patient feels now with resolved symptoms and desires discharge home. Educated patient on signs and symptoms of preeclampsia. To follow-up at scheduled appointments
== END 2021-11-14 18:15 | disposition home or self-care (01) ==
LOC: WPOUT 13:41 → WP 13:42
PROVIDERS: Referring Provider Obstetrics & Gynecology; Visit Provider Obstetrics & Gynecology
DX: O99.891 Other specified diseases and conditions complicating pregnancy (principal); R51.9 Headache, unspecified; Z79.82 Long term (current) use of aspirin; Z79.899 Other long term (current) drug therapy; Z3A.00 Weeks of gestation of pregnancy not specified
CPT/HCPCS: 36415; 59025; 59050; 80053; 81001; 82570; 83615; 84156; 85027; 87086; 87088; 99218; G0378

== ENCOUNTER → 2021-11-20 | Outpatient (CLI) | payer MEDICAID, SELFPAY ==
[2021-11-20 17:25] LABS: Absolute Lymphocyte Count 1.87 X10^3/uL (0.83-4.51); Absolute Neutrophil Count 5.4 X10^3/uL (2.0-7.7); Basophil# 0.01 X10^3/uL; Basophil% 0.1 % (0-1); Eosinophil# 0.12 X10^3/uL; Eosinophils% 1.5 % (0-5); Hematocrit 35.8 % (37-47); Hemoglobin 12.1 g/dL (12.0-15.0); Lymphocyte # 1.87 X10^3/ul (0.83-4.51); Lymphocyte % 22.7 % (19-41); Mean Corp Hgb Conc 33.8 g/dL (32-36); Mean Corpuscular Hgb 30.3 pg (27.0-32.0); Mean Corpuscular Volume 89.7 fL (81-99); Mean Platelet Vol. 11.1 fl (6.2-12.0); Monocyte# 0.84 X10^3/uL; Monocyte% 10.2 % (0-10); NRBC Flagged by Analyzer 0 % (0-5); Neutrophil # 5.36 X10^3/uL (2.7-7.7); Platelet Count 268 K/mm3 (150-450); RBC Distribution Width CV 13.3 % (11.6-14.6); RBC Distribution Width SD 43.4 fl (35.1-43.9); Red Blood Count 3.99 M/mm3 (4.2-5.4); White Blood Count 8.2 K/mm3 (4.4-11.0)
[2021-11-20 17:38] LABS: Protein:Creat Ratio 190 mg/g CRE (0-200)
[2021-11-20 18:29] LABS: ALB/GLOB Ratio 0.5 RATIO (0.9-2.4); AST(SGOT) 10 U/L (15-37); Alanine Aminotransfer ALT/SGPT 17 U/L (13-56); Albumin, Serum 2.5 g/dL (3.2-5.0); Alkaline Phosphatase 110 U/L (45-117); Anion Gap 9 (5-15); BUN 4 mg/dL (7-18); BUN/Creat Ratio 6.9 RATIO (10-20); Calcium,Total 8.8 mg/dL (8.5-10.1); Chloride 109 mmol/L (98-107); Creatinine, Serum 0.58 mg/dL (0.55-1.02); EST Glomerular Filtration Rate 131 mL/min (>60); Est Glom Filt Rate - Afr Amer 159 mL/min (>60); Globulin 4.8 g/dL (2.2-4.2); Glucose 131 mg/dL (74-106); LDH 154 U/L (84-246); Potassium 3.5 mmol/L (3.5-5.1); Protein, Total 7.3 g/dL (6.4-8.2); Sodium Level 137 mmol/L (136-145)
== END | disposition home or self-care (01) ==
LOC: WOBLAB 16:58
PROVIDERS: Visit Provider Obstetrics & Gynecology
DX: Z34.83 Encounter for supervision of other normal pregnancy, third trimester (principal)
CPT/HCPCS: 36415; 80053; 82570; 83615; 84156; 85025; 87086; 87088

== ENCOUNTER → 2021-11-27 | Outpatient (CLI) | payer MEDICAID, SELFPAY | END | disposition home or self-care (01) | LOC: LABSPEC 15:44 | PROVIDERS: Visit Provider Obstetrics & Gynecology | DX: Z36.85 Encounter for antenatal screening for Streptococcus B (principal) | CPT/HCPCS: 87081 ==

== ENCOUNTER 2021-12-06 15:45 | Inpatient (IN) | payer MEDICAID, SELFPAY ==
[2021-12-06] VITALS (51 sets, daily range): BP systolic 100–145; BP diastolic 50–85; PULSE 66–101; RESP 14–16; TEMP 36.3–37.3; O2SAT 91–100; BMI 36.6
[2021-12-06] MEDS: Lactated Ringers 1,000 ML 200 ML IV (16:00)
[2021-12-06 16:21] LABS: Absolute Lymphocyte Count 1.87 X10^3/uL (0.83-4.51); Absolute Neutrophil Count 5.2 X10^3/uL (2.0-7.7); Basophil# 0.01 X10^3/uL; Basophil% 0.1 % (0-1); Eosinophil# 0.08 X10^3/uL; Hematocrit 35.4 % (37-47); Hemoglobin 11.8 g/dL (12.0-15.0); Lymphocyte # 1.87 X10^3/ul (0.83-4.51); Lymphocyte % 23.6 % (19-41); Mean Corp Hgb Conc 33.3 g/dL (32-36); Mean Corpuscular Hgb 29.1 pg (27.0-32.0); Mean Corpuscular Volume 87.2 fL (81-99); Mean Platelet Vol. 11.3 fl (6.2-12.0); Monocyte% 8.8 % (0-10); NRBC Flagged by Analyzer 0 % (0-5); Neutrophil # 5.21 X10^3/uL (2.7-7.7); Neutrophil % 65.9 % (47-70); Platelet Count 293 K/mm3 (150-450); RBC Distribution Width CV 13.1 % (11.6-14.6); RBC Distribution Width SD 41.5 fl (35.1-43.9); Red Blood Count 4.06 M/mm3 (4.2-5.4); White Blood Count 7.9 K/mm3 (4.4-11.0)
[2021-12-06 16:38] LABS: Protein:Creat Ratio 154 mg/g CRE (0-200)
[2021-12-06] MEDS: Magnesium Sulfate 4gm/100mL 4 GM/100 ML IV.SOLN. IV (16:59)
[2021-12-06] MEDS: Acetaminophen 500 MG Tablet 1000 MG PO ×2 (17:04→22:55)
[2021-12-06 17:10] LABS: ALB/GLOB Ratio 0.5 RATIO (0.9-2.4); AST(SGOT) 13 U/L (15-37); Alanine Aminotransfer ALT/SGPT 15 U/L (13-56); Albumin, Serum 2.5 g/dL (3.2-5.0); Alkaline Phosphatase 120 U/L (45-117); Anion Gap 9 (5-15); BUN 9 mg/dL (7-18); BUN/Creat Ratio 14.4 RATIO (10-20); Calcium,Total 9.7 mg/dL (8.5-10.1); Chloride 108 mmol/L (98-107); Creatinine, Serum 0.62 mg/dL (0.55-1.02); EST Glomerular Filtration Rate 120 mL/min (>60); Est Glom Filt Rate - Afr Amer 145 mL/min (>60); Estimated Creatinine Clearance 139.92 ml/min; Globulin 4.6 g/dL (2.2-4.2); Glucose 86 mg/dL (74-106); LDH 131 U/L (84-246); Potassium 3.5 mmol/L (3.5-5.1); Protein, Total 7.1 g/dL (6.4-8.2); Sodium Level 139 mmol/L (136-145)
[2021-12-06] MEDS: Magnesium Sulfate 20 GM/500 ML BAG IV ×2 (17:19→21:01)
--- NOTE | 2021-12-06 17:35 | HP.PCM.OB_ITS ---
History and Physical Date of Admission: 12/06/21 Chief complaint: Headache, visual changes History present illness: 31-year-old G3, P1 at 36 weeks and 5 days with ÁNGEL 12/29/2021 arrives with headache and visual changes. Denies chest pain, shortness of breath, nausea vomit, right upper quadrant pain. Patient states good movement. Obstetric history: G1: 37-week female 7 pounds 5 ounces complicated by preeclampsia G2: SAB G3: Current Past medical history: None Medications: vitamin Past surgical history: None Allergies: No known drug allergies Family history: Denies history of DVT or PE Social history: Denies smoking, alcohol, drug use Review of systems: Besides above pertinent positives a full review of systems was performed and found to be negative Physical exam: Blood pressure: 126/80 pulse 82 respiratory rate 16 SPO2 100% on room air General: Normal-appearing no acute distress HEENT: Normocephalic/atraumatic no cervical of adenopathy Cardiac/respiratory: No accessory muscles, nonlabored breathing Abdomen: Soft, nontender, gravid Extremities: No peripheral edema normal peripheral pulses Psych: Normal affect normal demeanor nonpressured speech Labs: White blood cell count 7.9 hemoglobin 11.8 hematocrit 35.4% platelets 293. Sodium 139 potassium 3.5 creatinine 0.62 AST 13 ALT 15 LDH 131 urine protein creatinine ratio 0.154 Assessment plan: 31-year-old G3, P1 at 36 weeks and 5 days previously diagnosed with gestational hypertension with elevated blood pressures in office now with headache with visual changes now diagnosed with preeclampsia with severe features based on headache and visual changes. Magnesium to be started. We will monitor blood pressures. Patient breech and elects for primary section for breech. Educated patient on diagnosis of preeclampsia with severe features and magnesium treatment along with its risks patient states understanding wish to proceed. Ed ucated patient on primary section risk benefits alternatives patient states understanding wish to proceed. All questions were answered and consent was signed. For 2 g Ancef and at 1930 per anesthesia
[2021-12-06] MEDS: Lactated Ringers 1,000 ML 999 ML IV (18:22)
[2021-12-06] MEDS: Lactated Ringers 1,000 ML 150 ML IV ×2 (19:21→22:06)
[2021-12-06] MEDS: Sodium Citrate/Citric Acid 30 ML UDC PO (19:21)
[2021-12-06] MEDS: Cefazolin 2 GM in 0.9% Normal Saline 100 ML IV (19:42)
--- NOTE | 2021-12-06 20:33 | OP.PCM_ITS ---
Details Operative Information Date of Procedure: 12/06/21 Pre-Operative Diagnosis: Preeclampsia with severe features, breech Post-Operative Diagnosis: Preeclampsia with severe features, breech field administrator #1: Lucie Swann Findings Description of Procedure: Procedure: Primary low transverse section Via Pfannenstiel incision Surgeon: Hayder Nunn MD Anesthesia: Spinal EBL: 700 cc Urine output: 150 cc IV fluids: 900 cc Complications: None Specimen: None Findings: Male in breech position Apgars 9/9. Normal uterus, tubes, and ovaries Consent: Patient diagnosed with preeclampsia with severe features baby breech patient elects for primary section Via Pfannenstiel incision. Patient understands the risk of the procedure include but are not limited to visceral or vascular injury, prolonged hospitalization, blood loss need for transfusion, reoperation. Patient state understanding and wished to proceed. All questions were answered and consent was signed. Procedure: Patient was brought back to the OR where spinal anesthesia was found to be adequate. 2 g of Ancef and 500 mg of azithromycin were given for infection prophylaxis. Patient was prepared and draped in a supine position with leftward tilt. A Pfannenstiel incision was made at the skin with a scalpel. The incision was carried down to the fascia with a scalpel. The fascia was excised and extended laterally. Rectus muscle was dissected at the midline down to the level of pubic symphysis. Preperitoneal fatty tissue was noted and peritoneum was entered bluntly. Peritoneum was extended superiorly and inferiorly with good visualization of the bladder. Bladder blade was inserted and vesicouterine peritoneum was identified. Low transverse hysterotomy was made. Baby was de livered in standard breech fashion. Cord was clamped and cut. Baby is handed off to nursing. Placenta was delivered via cord traction and fundal massage. IV oxytocin was initiated in order to facilitate uterine contractions. Uterus was exteriorized and wiped out with dry laparotomy sponge in order to remove remaining placental membranes. Uterus was closed in a continuous running fashion. Defsff-am-fiwby's were used for hemostasis. Uterus was placed back in abdominal cavity and Beena was placed over the incision. Good hemostasis was noted. Fascia was closed in continuous running fashion with PDS suture. Subcutaneous irrigation was performed and good hemostasis was noted. Skin was closed in a subcuticular fashion. Good hemostasis was noted. All counts were correct x2. Patient tolerated procedure well and was brought to recovery in stable condition.
[2021-12-06] MEDS: Ketorolac 30 MG/ML Syringe IV (23:04)
[2021-12-07] VITALS (31 sets, daily range): BP systolic 100–134; BP diastolic 53–82; PULSE 67–97; RESP 16; TEMP 36.1–37.3; O2SAT 92–98
[2021-12-07] MEDS: Magnesium Sulfate 20 GM/500 ML BAG IV ×2 (02:44→11:10)
[2021-12-07] MEDS: Acetaminophen 500 MG Tablet 1000 MG PO ×4 (05:10→23:00)
[2021-12-07] MEDS: Ketorolac 30 MG/ML Syringe IV ×3 (05:11→17:22)
[2021-12-07] MEDS: 0.9% Saline Lock 10 ML Syringe IV (05:12)
[2021-12-07 05:34] LABS: Hematocrit 30.7 % (37-47); Hemoglobin 10.4 g/dL (12.0-15.0); Mean Corp Hgb Conc 33.9 g/dL (32-36); Mean Corpuscular Hgb 29.9 pg (27.0-32.0); Mean Corpuscular Volume 88.2 fL (81-99); Mean Platelet Vol. 10.8 fl (6.2-12.0); Platelet Count 249 K/mm3 (150-450); RBC Distribution Width CV 13.2 % (11.6-14.6); RBC Distribution Width SD 42.4 fl (35.1-43.9); Red Blood Count 3.48 M/mm3 (4.2-5.4); White Blood Count 9.2 K/mm3 (4.4-11.0)
[2021-12-07 06:08] LABS: ALB/GLOB Ratio 0.5 RATIO (0.9-2.4); AST(SGOT) 10 U/L (15-37); Alanine Aminotransfer ALT/SGPT 13 U/L (13-56); Albumin, Serum 1.9 g/dL (3.2-5.0); Alkaline Phosphatase 100 U/L (45-117); Anion Gap 9 (5-15); BUN 5 mg/dL (7-18); BUN/Creat Ratio 8.1 RATIO (10-20); Calcium,Total 7.2 mg/dL (8.5-10.1); Chloride 106 mmol/L (98-107); Creatinine, Serum 0.62 mg/dL (0.55-1.02); EST Glomerular Filtration Rate 120 mL/min (>60); Est Glom Filt Rate - Afr Amer 146 mL/min (>60); Estimated Creatinine Clearance 139.92 ml/min; Globulin 3.9 g/dL (2.2-4.2); Glucose 113 mg/dL (74-106); LDH 138 U/L (84-246); Magnesium 5.2 mg/dL (1.6-2.6); Potassium 3.2 mmol/L (3.5-5.1); Protein, Total 5.8 g/dL (6.4-8.2); Sodium Level 137 mmol/L (136-145)
--- NOTE | 2021-12-07 07:26 | PN.OBGYN_ITS ---
Subjective Subjective No overnight complaints. Denies headache, vision change, chest pain, shortness of breath, nausea vomit, right upper quadrant pain. Objective Data Objective Data Vital Signs: Vital Signs Temp Pulse Resp BP Pulse Ox O2 Del Method 98.9 F 81 16 119/64 98 Room Air 12/07/21 06:45 12/07/21 06:45 12/07/21 06:45 12/07/21 06:45 12/07/21 06:45 12/07/21 06:45 Oxygen Delivery Method Room Air Weight: 248 lb 0.321 oz Body Mass Index (BMI) 36.6 Intake & Output: Intake and Output for Last 24 Hours 12/05/21 12/06/21 12/07/21 23:59 23:59 23:59 Intake Total 3652.17 / 3652.17 560.63 / 560.63 Output Total 1100 / 1100 950 / 950 Balance 2552.17 / 2552.17 -389.37 / -389.37 Lab / Micro Data Result Diagrams: 12/07/21 05:30 12/07/21 05:30 Labs: Laboratory Results - last 24 hr 12/06/21 16:00: WBC 7.9, RBC 4.06 L, Hgb 11.8 L, Hct 35.4 L, MCV 87.2, MCH 29.1, MCHC 33.3, RDW Std Deviation 41.5, RDW Coeff of [place] 13.1, Plt Count 293, MPV 11.3, Immature Gran % (Auto) 0.600, Neut % (Auto) 65.9, Lymph % (Auto) 23.6, [place] % (Auto) 8.8, Eos % (Auto) 1.0, Baso % (Auto) 0.1, Absolute Neuts (auto) 5.2, Absolute Lymphs (auto) 1.87, Nucleated RBC % 0 12/06/21 16:00: Blood Type A POSITIVE, Antibody Screen NEGATIVE 12/06/21 16:00: Sodium 139, Potassium 3.5, Chloride 108 H, Carbon Dioxide 22.0, Anion Gap 9, BUN 9, Creatinine 0.62, Estim Creat Clear Calc 139.92, Est GFR (MDRD) Af Amer 145, Est GFR (MDRD) Non-Af 120, BUN/Creatinine Ratio 14.4, Glucose 86, Calcium 9.7, Total Bilirubin 0.20, AST 13 L, ALT 15, Alkaline Phosphatase 120 H, Lactate Dehydrogenase 131, Total Protein 7.1, Albumin 2.5 L, Globulin 4.6 H, Albumin/Globulin Ratio 0.5 L 12/06/21 16:00: U Random Total Protein 8.0, Urine Creatinine 52.00, Protein/Creatinin Ratio 154 12/06/21 16:00: Magnesium 4.0 H 12/07/21 05:30: WBC 9.2, RBC 3.48 L, Hgb 10.4 L, Hct 30.7 L, MCV 88.2, MCH 29.9, MCHC 33.9, RDW Std Deviation 42.4, RDW Coeff of [place] 13.2, Plt Count 249, MPV 10.8 12/07/21 05:30: Sodium 137, Potassium 3.2 L, Chloride 106, Carbon Dioxide 22.0, Anion Gap 9, BUN 5 L, Creatinine 0.62, Estim Creat Clear Calc 139.92, Est GFR (MDRD) Af Amer 146, Est GFR (MDRD) Non-Af 120, BUN/Creatinine Ratio 8.1 L, Glucose 113 H, Calcium 7.2 L, Magnesium 5.2 H*, Total Bilirubin 0.20, AST 10 L, ALT 13, Alkaline Phosphatase 100, Lactate Dehydrogenase 138, Total Protein 5.8 L , Albumin 1.9 L, Globulin 3.9, Albumin/Globulin Ratio 0.5 L Micro: Microbiology 12/06/21 16:00 Nasal Secretion SARS-CoV-2 Antigen (Rapid) - Final Physical Exam Const alert, oriented x3, no apparent distress, average body habitus, healthy appearing and well nourished HEENT normocephalic and moist oral mucous membranes Eyes PERRL Neck full ROM Resp normal respiratory effort, no retractions and no use of accessory muscles GI GI Narrative: Soft, nontender, uterus firm and below umbilicus. Bandage clean dry and intact Extremity normal to inspection, full ROM and no clubbing, cyanosis or edema Neuro moves all extremities and no focal motor deficits Psych mental status grossly normal, affect normal, speech normal and activity/motor behavior normal Assessment & Plan (1) delivery delivered: PLAN: Postop day 1 status post primary section for breech. Pain well controlled. Preeclampsia with severe features based on headache with visual changes currently on magnesium we will continue 24 hours after delivery. HELLP labs overall stable. Hypokalemia for potassium replacement.
[2021-12-07] MEDS: Enoxaparin 40 MG/0.4 ML Syringe SC (11:12)
[2021-12-07] MEDS: Senna/Docusate Sodium 1 Tablet PO (11:12)
[2021-12-07] MEDS: Escitalopram Oxalate 10 MG Tablet PO (11:13)
[2021-12-07 18:11] LABS: Magnesium 6.3 mg/dL (1.6-2.6)
[2021-12-07] MEDS: Potassium Chloride 10mEq/100mL 10 MEQ/100 ML IV.SOLN. 50 MEQ IV BOLUS ×2 (20:33→22:39)
[2021-12-07] MEDS: Ibuprofen 600 MG Tablet PO (23:00)
[2021-12-08] VITALS (9 sets, daily range): BP systolic 116–132; BP diastolic 59–72; PULSE 68–87; RESP 12–18; TEMP 36.8–37.2; O2SAT 94–97
[2021-12-08] MEDS: Potassium Chloride 10mEq/100mL 10 MEQ/100 ML IV.SOLN. 50 MEQ IV BOLUS (00:34)
[2021-12-08] MEDS: Ibuprofen 600 MG Tablet PO ×4 (05:04→23:25)
[2021-12-08] MEDS: Acetaminophen 500 MG Tablet 1000 MG PO ×4 (05:05→23:26)
[2021-12-08 05:26] LABS: Absolute Lymphocyte Count 1.84 X10^3/uL (0.83-4.51); Absolute Neutrophil Count 4.4 X10^3/uL (2.0-7.7); Basophil# 0.01 X10^3/uL; Basophil% 0.1 % (0-1); Eosinophil# 0.17 X10^3/uL; Eosinophils% 2.4 % (0-5); Hematocrit 33.4 % (37-47); Hemoglobin 11.2 g/dL (12.0-15.0); Lymphocyte # 1.84 X10^3/ul (0.83-4.51); Lymphocyte % 26.4 % (19-41); Mean Corp Hgb Conc 33.5 g/dL (32-36); Mean Corpuscular Hgb 29.9 pg (27.0-32.0); Mean Corpuscular Volume 89.3 fL (81-99); Mean Platelet Vol. 10.9 fl (6.2-12.0); Monocyte# 0.55 X10^3/uL; Monocyte% 7.9 % (0-10); NRBC Flagged by Analyzer 0 % (0-5); Neutrophil # 4.37 X10^3/uL (2.7-7.7); Neutrophil % 62.8 % (47-70); Platelet Count 278 K/mm3 (150-450); RBC Distribution Width CV 13.4 % (11.6-14.6); RBC Distribution Width SD 43.8 fl (35.1-43.9); Red Blood Count 3.74 M/mm3 (4.2-5.4)
[2021-12-08 05:43] LABS: ALB/GLOB Ratio 0.5 RATIO (0.9-2.4); AST(SGOT) 17 U/L (15-37); Alanine Aminotransfer ALT/SGPT 13 U/L (13-56); Albumin, Serum 2.2 g/dL (3.2-5.0); Alkaline Phosphatase 110 U/L (45-117); Anion Gap 7 (5-15); BUN 6 mg/dL (7-18); BUN/Creat Ratio 9.4 RATIO (10-20); Calcium,Total 7.7 mg/dL (8.5-10.1); Chloride 107 mmol/L (98-107); Creatinine, Serum 0.64 mg/dL (0.55-1.02); EST Glomerular Filtration Rate 117 mL/min (>60); Est Glom Filt Rate - Afr Amer 141 mL/min (>60); Estimated Creatinine Clearance 135.55 ml/min; Globulin 4.4 g/dL (2.2-4.2); Glucose 68 mg/dL (74-106); LDH 203 U/L (84-246); Potassium 3.4 mmol/L (3.5-5.1); Protein, Total 6.6 g/dL (6.4-8.2); Sodium Level 139 mmol/L (136-145)
--- NOTE | 2021-12-08 10:08 | PN.OBGYN_ITS ---
Subjective Subjective No overnight complaints. Denies headache, visual change, chest pain, shortness of breath, nausea vomit, right upper quadrant pain. Objective Data Objective Data Vital Signs: Vital Signs Temp Pulse Resp BP Pulse Ox O2 Del Method 98.2 F 87 18 116/69 97 Room Air 12/08/21 07:54 12/08/21 07:54 12/08/21 07:54 12/08/21 07:54 12/08/21 07:54 12/08/21 07:54 Oxygen Delivery Method Room Air Weight: 248 lb 0.321 oz Body Mass Index (BMI) 36.6 Intake & Output: Intake and Output for Last 24 Hours 12/06/21 12/07/21 12/08/21 23:59 23:59 23:59 Intake Total 3652.17 / 3652.17 3334.80 / 3334.80 331.66 / 331.66 Output Total 1100 / 1100 3550 / 3550 Balance 2552.17 / 2552.17 -215.20 / -215.20 331.66 / 331.66 Lab / Micro Data Result Diagrams: 12/08/21 05:14 12/08/21 05:14 Labs: Laboratory Results - last 24 hr 12/07/21 11:32: Magnesium 6.0 H* 12/07/21 17:45: Magnesium 6.3 H* 12/08/21 05:14: WBC 7.0, RBC 3.74 L, Hgb 11.2 L, Hct 33.4 L, MCV 89.3, MCH 29.9, MCHC 33.5, RDW Std Deviation 43.8, RDW Coeff of [place] 13.4, Plt Count 278, MPV 10.9, Immature Gran % (Auto) 0.400, Neut % (Auto) 62.8, Lymph % (Auto) 26.4, [place] % (Auto) 7.9, Eos % (Auto) 2.4, Baso % (Auto) 0.1, Absolute Neuts (auto) 4.4, Absolute Lymphs (auto) 1.84, Nucleated RBC % 0 12/08/21 05:14: Sodium 139, Potassium 3.4 L, Chloride 107, Carbon Dioxide 25.0, Anion Gap 7, BUN 6 L, Creatinine 0.64, Estim Creat Clear Calc 135.55, Est GFR (M DRD) Af Amer 141, Est GFR (MDRD) Non-Af 117, BUN/Creatinine Ratio 9.4 L, Glucose 68 L, Calcium 7.7 L, Total Bilirubin 0.20, AST 17, ALT 13, Alkaline Phosphatase 110, Lactate Dehydrogenase 203, Total Protein 6.6, Albumin 2.2 L, Globulin 4.4 H , Albumin/Globulin Ratio 0.5 L Micro: Microbiology 12/06/21 16:00 Nasal Secretion SARS-CoV-2 Antigen (Rapid) - Final Physical Exam Const alert, oriented x3, no apparent distress, average body habitus, healthy appearing and well nourished HEENT normocephalic and moist oral mucous membranes Eyes PERRL Neck full ROM Resp normal respiratory effort, no retractions and no use of accessory muscles Extremity normal to inspection, full ROM and no clubbing, cyanosis or edema Neuro moves all extremities and no focal motor deficits Psych mental status grossly normal, affect normal, speech normal and activity/motor b ehavior normal Assessment & Plan (1) delivery delivered: PLAN: Postop day 2 status post primary section for breech at 36 weeks for preeclampsia with severe features based on headache and visual changes. Status post 24 hours of magnesium. On no blood pressure medications. Status post 40 mEq of KCl. We will continue to monitor blood pressure signs and symptoms today. Breast-feeding. Likely home tomorrow
[2021-12-08] MEDS: Enoxaparin 40 MG/0.4 ML Syringe SC (11:25)
[2021-12-08] MEDS: Escitalopram Oxalate 10 MG Tablet PO (11:27)
[2021-12-08] MEDS: Senna/Docusate Sodium 1 Tablet PO (11:27)
[2021-12-09 02:30] VITALS: BP 115/70; PULSE 69; O2SAT 97
[2021-12-09 02:35] VITALS: BP 115/71; PULSE 71; RESP 16; TEMP 36.4; O2SAT 98
[2021-12-09] MEDS: Ibuprofen 600 MG Tablet PO (06:08)
[2021-12-09] MEDS: Acetaminophen 500 MG Tablet 1000 MG PO (06:08)
[2021-12-09 06:22] LABS: Absolute Lymphocyte Count 1.88 X10^3/uL (0.83-4.51); Absolute Neutrophil Count 3.8 X10^3/uL (2.0-7.7); Basophil# 0.01 X10^3/uL; Basophil% 0.2 % (0-1); Eosinophil# 0.24 X10^3/uL; Eosinophils% 3.7 % (0-5); Hematocrit 30.5 % (37-47); Hemoglobin 10.2 g/dL (12.0-15.0); Lymphocyte # 1.88 X10^3/ul (0.83-4.51); Lymphocyte % 28.9 % (19-41); Mean Corp Hgb Conc 33.4 g/dL (32-36); Mean Corpuscular Hgb 30.4 pg (27.0-32.0); Mean Corpuscular Volume 90.8 fL (81-99); Mean Platelet Vol. 10.7 fl (6.2-12.0); Monocyte# 0.56 X10^3/uL; Monocyte% 8.6 % (0-10); NRBC Flagged by Analyzer 0 % (0-5); Neutrophil # 3.78 X10^3/uL (2.7-7.7); Platelet Count 269 K/mm3 (150-450); RBC Distribution Width CV 13.4 % (11.6-14.6); RBC Distribution Width SD 44.5 fl (35.1-43.9); Red Blood Count 3.36 M/mm3 (4.2-5.4); White Blood Count 6.5 K/mm3 (4.4-11.0)
[2021-12-09 06:54] LABS: ALB/GLOB Ratio 0.5 RATIO (0.9-2.4); AST(SGOT) 16 U/L (15-37); Alanine Aminotransfer ALT/SGPT 14 U/L (13-56); Alkaline Phosphatase 83 U/L (45-117); Anion Gap 8 (5-15); BUN 8 mg/dL (7-18); BUN/Creat Ratio 14.1 RATIO (10-20); Calcium,Total 8.5 mg/dL (8.5-10.1); Chloride 111 mmol/L (98-107); Creatinine, Serum 0.57 mg/dL (0.55-1.02); EST Glomerular Filtration Rate 133 mL/min (>60); Est Glom Filt Rate - Afr Amer 161 mL/min (>60); Estimated Creatinine Clearance 152.19 ml/min; Glucose 81 mg/dL (74-106); LDH 174 U/L (84-246); Potassium 3.6 mmol/L (3.5-5.1); Sodium Level 142 mmol/L (136-145)
--- NOTE | 2021-12-09 07:34 | PCM.DC.BLA ---
Discharge Summary Date of Admission: 12/06/21 Date of Discharge: 12/09/21 Summary: Patient arrived on 12/06/2021 for primary section for breech for preeclampsia with severe features based on headache with visual changes at 36 weeks. Primary section performed on 12/06/2021. Magnesium for 24 hours was ran. Routine postoperative recovery. No blood pressure medication was needed. Headache was resolved. Patient was discharged home on 12/09/2021 Meaningful Use Info Meaningful Use Diagnoses (Choose all that apply): None applicable Discharge Plan Admission Admit Date/Time: 12/06/21 15:45 Primary Reason for Your Visit: Primary Attending Provider: Hayder Nunn Primary Care Provider: Care PhysicianCarrol Primary Instructions Additional Instructions / Restrictions: Regular diet. Okay to shower. No tub baths for 2 weeks. No lifting over 25 pounds for 2 to 3 weeks. No intercourse for 4 to 6 weeks. Call if fevers, chills, chest pain, shortness of breath. Follow-up 1 week blood pressure check Discharge Orders/Prescriptions Prescriptions: New oxycodone 5 mg tablet 5 mg PO Q6H PRN (Reason: pain (scale score 7-10)) 4 Days Qty: 16 0RF Continued vit no.[id number] 1 EACH tablet 1 ea PO DAILY famotidine [Pepcid] 20 mg Tablet 40 mg PO DAILY escitalopram oxalate [Lexapro] 10 mg Tablet 10 mg PO DAILY aspirin 81 mg Capsule 81 mg PO DAILY Referrals / Follow Up: Care Physician,Carrol Primary [Primary Care Provider] - Disposition Disposition (needs filled in before D/C Order can be placed): Home, Self Care
--- NOTE | 2021-12-09 07:36 | PN.OBGYN_ITS ---
Subjective Subjective No overnight complaints. Denies headache, visual changes, chest pain, shortness of breath, nausea vomit, right upper quadrant pain. Objective Data Objective Data Vital Signs: Vital Signs Temp Pulse Resp BP Pulse Ox O2 Del Method 97.5 F L 71 16 115/71 98 Room Air 12/09/21 02:35 12/09/21 02:35 12/09/21 02:35 12/09/21 02:35 12/09/21 02:35 12/09/21 02:35 Oxygen Delivery Method Room Air Weight: 248 lb 0.321 oz Body Mass Index (BMI) 36.6 Intake & Output: Intake and Output for Last 24 Hours 12/07/21 12/08/21 12/09/21 23:59 23:59 23:59 Intake Total 3334.80 / 3334.80 331.66 / 331.66 Output Total 3550 / 3550 Balance -215.20 / -215.20 331.66 / 331.66 Lab / Micro Data Result Diagrams: 12/09/21 06:15 12/09/21 06:15 Labs: Laboratory Results - last 24 hr 12/09/21 06:15: WBC 6.5, RBC 3.36 L, Hgb 10.2 L, Hct 30.5 L, MCV 90.8, MCH 30.4, MCHC 33.4, RDW Std Deviation 44.5 H, RDW Coeff of [place] 13.4, Plt Count 269, MPV 10.7, Immature Gran % (Auto) 0.600, Neut % (Auto) 58.0, Lymph % (Auto) 28.9, [place] % (Auto) 8.6, Eos % (Auto) 3.7, Baso % (Auto) 0.2, Absolute Neuts (auto) 3.8, Absolute Lymphs (auto) 1.88, Nucleated RBC % 0 12/09/21 06:15: Sodium 142, Potassium 3.6, Chloride 111 H, Carbon Dioxide 23.0, Anion Gap 8, BUN 8, Creatinine 0.57, Estim Creat Clear Calc 152.19, Est GFR ( RD) Af Amer 161, Est GFR (MDRD) Non-Af 133, BUN/Creatinine Ratio 14.1, Glucose 81, Calcium 8.5, Total Bilirubin 0.20, AST 16, ALT 14, Alkaline Phosphatase 83, Lactate Dehydrogenase 174, Total Protein 6.0 L, Albumin 2.0 L, Globulin 4.0, Albumin/Globulin Ratio 0.5 L Micro: Microbiology 12/06/21 16:00 Nasal Secretion SARS-CoV-2 Antigen (Rapid) - Final Physical Exam Const alert, oriented x3, no apparent distress, average body habitus, healthy appearing and well nourished HEENT normocephalic and moist oral mucous membranes Eyes PERRL Neck full ROM Resp normal respiratory effort, no retractions and no use of accessory muscles Extremity normal to inspection, full ROM and no clubbing, cyanosis or edema Neuro moves all extremities and no focal motor deficits Psych mental status grossly normal, affect normal, speech normal and activity/motor behavior normal Assessment & Plan (1) delivery delivered: PLAN: Postop day 3 status post primary section for breech at 36 weeks for preeclampsia with severe features based on headache and visual changes. Status post magnesium for 24 hours. No blood pressure medication required. Patient asymptomatic. HELLP labs stable. Okay to discharge home today
[2021-12-09 09:05] VITALS: BP 121/63; PULSE 67
[2021-12-09 09:14] VITALS: BP 121/63; PULSE 67; RESP 16; TEMP 37
[2021-12-09] MEDS: Enoxaparin 40 MG/0.4 ML Syringe SC (10:04)
[2021-12-09] MEDS: Escitalopram Oxalate 10 MG Tablet PO (10:04)
[2021-12-09] MEDS: Famotidine 20 MG Tablet 40 MG PO (10:04)
--- NOTE | 2021-12-09 11:49 | CASEMGMT ---
Social Work Brief Assessment Labor and Delivery Unit Patient Address: [address] [place] [address] Phone number: [phone] Date of Referral/Notification: 12.09.2021 Time of Referral: [phone] Referred By: verbal notification by inspector exhaust emissionsLD [place] Date of Intervention: 12.09.2021 Time of Intervention: Approximately 9530-4351 Reason for Referral: Maternal history of depression; on Lexapro Informant: Medical record and mother of baby (MOB) Cara Tran; MOB's mother present for part of conversation. History: CABRERA is a 31 year old female, to the father of baby (FOB) Chinyere Tran, age 25. MOB and FOB have 2 children together: Juan Tran (11.24.2018) and baby Srinivasa Tran (12.06.2021). MOB denies any form of abuse, control, or intimidation in this relationship. care started at 7 weeks gestation with Srinivasa. CABRERA delivered via due to breech presentation, and at 36 weeks due to pre-eclampsia. MOB reports prior 37 week delivery with Patricioryan. Srinivasa's apgars 9 and 9 at 1 and 5 minutes of life. MOB denies any substance use or abuse history. No tobacco use reported. MOB report went onto Lexapro after getting off of Nexplanon control. MOB reports belief that did not do well hormonally on this control, and then has several life changes happening in a short period of time. MOB reports went to telehealth therapy, and from that was recommended to start the Lexapro. MOB denies any history of thoughts, plans, intent or attempts at suicide. EDPS depression screen a score of 4 during visits (Score of 0 this date). An aunt with a history of depression. Assessment: Met with MOB and MOB's mother in room, introducing to self and social work role. MOB's mother present for part of conversation, and while present presented as supportive and excited for MOB. MOB reports to have a good support system from her mother, FOB's mother, FOB, and other friends; both practical and emotional supports available. MOB denies any issue with basic needs such as housing or transportation. Involved with [facility] for medical only. MOB reports to be feeling good mood nguyễn, denies any current concerns with depression or anxiety. Reports plan to stay on Lexapro. Reports would return to therapy if needed in the future. Provided information and education on depression. MOB accepted packet of information n said topic, as well as a resource list of social service agencies in [facility] where family resides. MOB denies any concern with home going. Nursing reports MOB has been doing well with baby, no concerns reported with parent/child interactions or bonding. MOB with bright affect, good eye contact, spontaneous conversation. Held baby during social work visit, attentive and gentle towards baby. Plan: MOB and baby to home when ready. Resources given for home county and for PPD. No further needs requested or indicated. -JOSÉ MIGUEL Ernst, CLIENT DEVELOPMENT DIRECTOR *This note was generated with [employer] dictation software. It may contain incorrect words, spelling, and punctuation that were not noted in review of the chart prior to signing*
== END 2021-12-09 11:30 | disposition home or self-care (01) | DRG 540 ==
PROVIDERS: Admitting Provider Obstetrics & Gynecology; Visit Provider Obstetrics & Gynecology
DX: O32.1XX0 Maternal care for breech presentation, not applicable or unspecified (principal); O11.4 Pre-existing hypertension with pre-eclampsia, complicating childbirth; E87.6 Hypokalemia; Z3A.36 36 weeks gestation of pregnancy; Z37.0 Single live birth; O99.284 Endocrine, nutritional and metabolic diseases complicating childbirth; O10.02 Pre-existing essential hypertension complicating childbirth
CPT/HCPCS: 59025; 59050; 80053; 82570; 83615; 83735; 84156; 85025; 85027; 86850; 86900; 86901; 87811; 99218; J7030; J7120; A4216; G0378; J2405

== ENCOUNTER → 2022-01-22 | Outpatient (CLI) | payer MEDICAID, SELFPAY ==
[2022-01-25 06:07] LABS: Chlamydia By Nucleic Acid AMP Negative (Negative)
[2022-01-26 14:21] LABS: Gonococcus By Nucleic Acid AMP Negative (Negative)
== END | disposition home or self-care (01) ==
LOC: LABSPEC 14:33
PROVIDERS: Visit Provider Obstetrics & Gynecology
DX: Z11.3 Encounter for screening for infections with a predominantly sexual mode of transmission (principal)
CPT/HCPCS: 87491; 87591

== ENCOUNTER → 2022-10-03 | Outpatient (CLI) | payer OTHER, MEDICAID, SELFPAY ==
[2022-10-10 14:09] LABS: HPV APTIMA, High Risk Negative (Negative)
== END | disposition home or self-care (01) ==
LOC: LABSPEC 14:30
PROVIDERS: Visit Provider Obstetrics & Gynecology
DX: Z12.4 Encounter for screening for malignant neoplasm of cervix (principal)
CPT/HCPCS: 87624; 88175; G0145